=== PATIENT | male | born 1955 | race Caucasian/White ===

== ENCOUNTER → 2019-05-07 | Outpatient (CLI) | payer BC ==
[~2019-05-07] MED LIST: AMLO5 PO; AMOX500 PO; ASPI81CH PO; ATOR40TA PO; CARV25 PO; CLOP75 PO; CYAN500 PO; EFFIENT10 MG PO; ESCI10; FISH OIL 1,3601 EACH PO; FURO40 PO; ISOD40ER PO; ISODIN10 PO; Isosorbide Mono30 MG PO; LOSA25 PO; METF500C PO; NITR.4SL SL; Norco 10-325 T1 EACH; Omeprazole20 M1 PO; PROAIR RESPICL90 MCG; RANO500T PO; TUMS DUAL ACTI1 EACH; UBID100 PO; VITAMIN D31000 UNIT PO; [UNRECOGNIZED DRUG - OTHER] TP
[2019-05-07 12:51] LABS: BASOPHILS ABSOLUTE AUTO 0.04 K/mm3 (0.00-0.23); BASOPHILS PERCENT AUTO 0 % (0-2); EOSINOPHILS ABSOLUTE AUTO 0.14 K/mm3 (0.00-0.68); EOSINOPHILS PERCENT AUTO 2 % (0-6); Hematocrit 42.6 % (37.0-53.0); Hemoglobin 14.7 g/dL (13.5-17.5); IMMATURE GRAN ABSOLUTE AUTO 0.03 K/mm3 (0.00-0.10); IMMATURE GRAN PERCENT AUTO 0 % (0-1); LYMPHOCYTES ABSOLUTE AUTO 2.06 K/mm3 (0.84-5.20); LYMPHOCYTES PERCENT AUTO 23 % (21-46); MONOCYTES ABSOLUTE AUTO 1.01 K/mm3 (0.16-1.47); MONOCYTES PERCENT AUTO 11 % (4-13); Mean Corpuscular HGB 31.7 pg (26.0-34.0); Mean Corpuscular HGB Conc 34.5 g/dL (31.5-36.5); Mean Corpuscular Volume 92 fL (80-100); Mean Platelet Volume 9.5 fL (9.1-12.4); NEUTROPHILS ABSOLUTE AUTO 5.82 K/mm3 (1.96-9.15); NEUTROPHILS PERCENT AUTO 64 % (41-73); Platelet Count 229 K/mm3 (150-400); RDW Coefficient Variation 12.8 % (11.7-14.2); RDW Standard Deviation 42.5 fL (35.1-46.3); Red Blood Cell Count 4.64 M/mm3 (4.30-5.90)
[2019-05-07 13:04] LABS: Alanine Aminotransfer (ALT/SGP 23 U/L (12-78); Albumin, Blood 3.9 g/dL (3.4-5.0); Alk Phos 129 U/L (40-126); Anion Gap 2 mmol/L (6-16); Aspartate Aminotrans (AST/SGOT 19 U/L (12-37); Bilirubin, Total 0.7 mg/dL (0.1-1.0); Blood Urea Nitrogen 16 mg/dL (8-24); Bun/Creatinine Ratio 12.3 (12.0-20.0); CO2, Blood 32 mmol/L (21-32); Calcium, Blood 8.8 mg/dL (8.5-10.1); Chloride, Blood 101 mmol/L (98-108); Globulin, Blood 3.9 g/dL (2.2-4.0); Glomerular Filtration Rate 56 (60-); Glucose, Blood 138 mg/dL (70-99); Potassium, Blood 4.1 mmol/L (3.5-5.5); Sodium, Blood 135 mmol/L (136-145); Total Protein, Blood 7.8 g/dL (6.4-8.2); Troponin I <0.017 ng/mL (0.000-0.040)
== END ==
LOC: LAB EV 12:45 → LAB SHORT 12:45
PROVIDERS: Physician Assistant
DX: R61 Generalized hyperhidrosis (principal)
CPT/HCPCS: 80053; 84484; 85025; 85379

== ENCOUNTER 2021-10-23 08:13 | Observation (INO) | payer BC ==
[~2021-10-23] VITALS: Ht 177.8 cm; Wt 138.2 kg
[~2021-10-23 08:13] MED LIST changes: -Norco 10-325 T1 EACH; +Norco 7.5-3251 EACH PO
[2021-10-23 08:55] LABS: BASOPHILS ABSOLUTE AUTO 0.05 K/mm3 (0.00-0.23); BASOPHILS PERCENT AUTO 1 % (0-2); EOSINOPHILS ABSOLUTE AUTO 0.24 K/mm3 (0.00-0.68); EOSINOPHILS PERCENT AUTO 3 % (0-6); Hematocrit 44.5 % (37.0-53.0); Hemoglobin 15.7 g/dL (13.5-17.5); IMMATURE GRAN ABSOLUTE AUTO 0.03 K/mm3 (0.00-0.10); IMMATURE GRAN PERCENT AUTO 0 % (0-1); LYMPHOCYTES ABSOLUTE AUTO 2.03 K/mm3 (0.84-5.20); LYMPHOCYTES PERCENT AUTO 21 % (21-46); MONOCYTES ABSOLUTE AUTO 0.87 K/mm3 (0.16-1.47); MONOCYTES PERCENT AUTO 9 % (4-13); Mean Corpuscular HGB 31.9 pg (26.0-34.0); Mean Corpuscular HGB Conc 35.3 g/dL (31.5-36.5); Mean Corpuscular Volume 90 fL (80-100); Mean Platelet Volume 9.8 fL (9.1-12.4); NEUTROPHILS ABSOLUTE AUTO 6.42 K/mm3 (1.96-9.15); NEUTROPHILS PERCENT AUTO 67 % (41-73); Platelet Count 259 K/mm3 (150-400); RDW Coefficient Variation 12.6 % (11.7-14.2); RDW Standard Deviation 41.3 fL (35.1-46.3); Red Blood Cell Count 4.92 M/mm3 (4.30-5.90); White Blood Cell Count 9.64 K/mm3 (4.00-11.30)
[2021-10-23 09:18] LABS: International Normalized Ratio 1.07; Prothrombin Time Results 11.2 Sec (9.7-11.5)
[2021-10-23 09:18] LABS: Albumin, Blood 3.9 g/dL (3.4-5.0); Bilirubin, Total 0.7 mg/dL (0.1-1.0); Bun/Creatinine Ratio 18.5 (12.0-20.0); Calcium, Blood 8.9 mg/dL (8.5-10.1); Creatinine, Blood 0.92 mg/dL (0.60-1.20); Globulin, Blood 3.8 g/dL (2.2-4.0); Potassium, Blood 4.3 mmol/L (3.5-5.5); Total Protein, Blood 7.7 g/dL (6.4-8.2)
--- NOTE | 2021-10-23 17:14 | NUR ---
PT ARRIVES TO ICU 16 FROM ER AT 1630. PT IS A/OX4. CP RETURNS AT A 3/10 WHEN SLID FROM GURNEY TO BED WITH SLIDER SHEET. AFTER PT IS SETTLED INTO BED CP GOES BACK DOWN TO 0-1/10. NO SOB OR N/V. HAS NITRO GTT RUNNING AT 25MCG/MIN. HEPARIN GTT AT 15 UNITS/KG/HR. CONFIRMED WITH PT THAT HE IS A FULL CODE AND WHAT THAT MEANS. SPOKE WITH PT ABOUT LOOKING AT OTHER HOSPITALS BESIDES [facility] FOR TRANSFER DUE TO PT NEEDING CABG. PT IS NOT THRILLED ABOUT GOING TO OTHER HOSPITALS DUE TO CONVENIENCE FOR FAMILY AND TRAVEL. EDUCATED PT AND ABOUT THE POSSIBILITY THAT [facility] MAY NOT HAVE AN AVAILABLE BED FOR AWHILE. BOTH PT AND AGREED TO LOOK AT OTHER OPTIONS AND TO AT LEAST GET ON WAITING LISTS OF OTHER HOSPITALS IF NECESSARY. CALLED DR. JAIME TO ASK IF HE WOULD ALSO LIKE TO LOOK INTO OTHER HOSPITALS AND HE AGREES. ALSO INFORMED HIM OF TROPONIN INCREASE AND CP RETURNING WITH ANY EXERTION. BLOOD SPLATTER ANALYST MADHU IS STARTING PHONE CALLS. PT HAS DIRECT INSTRUCTIONS FROM THIS RN TO CALL FOR ASSISTANCE IF NEEDING TO USE BATHROOM OR ANYTHING THAT WILL EXERT HIS HEART. EDUCATED THAT HE IS ON BEDREST NOW AND PT VERBALIZES UNDERSTANDING. CALL LIGHT IN REACH, AT BEDSIDE.
[2021-10-23] MEDS ORDERED: Vitamin D1000 UNI1 PO (17:41)
--- NOTE | 2021-10-23 18:01 | NUR ---
TEMPLATE MAKER ABLE TO GET [facility] WHO IS IN TOUCH WITH DR. JAIME. WORKING TO GET A BED AVAILABLE FOR CABG AND TRANSFER RAHUL. PT RESTING IN BED. NO SIGN OF DISTRESS.
--- NOTE | 2021-10-23 18:29 | NUR ---
REPORT GIVEN TO BEATRIZ RODRÍGUEZ AT [facility]. PT IS GOING TO ROOM 275. PT AND INFORMED OF ROOM # AND PLAN TO TRANSFER VIA AMBULANCE.
--- NOTE | 2021-10-23 19:04 | NUR ---
AT 1840 PT STARTED HAVING 2/10 MID STERNAL CP. GAVE MORPHINE AND INCREASED NITRO TO 30MCG/MIN. PT STATES CP SUBSIDES AFTER MEDS. REPORT GIVEN TO EMT'S. PT LEAVES THE UNIT FOR TRANSFER TO [facility] WITHOUT SIGNS OF DISTRESS. HEPARIN REMAINS RUNNING WELL.
== END 2021-10-23 19:02 | disposition short-term general hospital (02) ==
LOC: ER 08:13 → PCU 08:14 → ICUW 16:38
PROVIDERS: Emergency Medicine; ADMIT Internal Medicine
DX: I25.110 Atherosclerotic heart disease of native coronary artery with unstable angina pectoris (principal); I11.9 Hypertensive heart disease without heart failure; J98.11 Atelectasis; E78.00 Pure hypercholesterolemia, unspecified; I25.2 Old myocardial infarction; I25.10 Atherosclerotic heart disease of native coronary artery without angina pectoris; R73.03 Prediabetes; E78.5 Hyperlipidemia, unspecified; E66.9 Obesity, unspecified; Z95.1 Presence of aortocoronary bypass graft; Z90.49 Acquired absence of other specified parts of digestive tract; Z79.82 Long term (current) use of aspirin; Z79.84 Long term (current) use of oral hypoglycemic drugs; Z87.891 Personal history of nicotine dependence
CPT/HCPCS: 36415; 71045; 71275; 80053; 83880; 84484; 85025; 85520; 85610; 85730; 93005; 93010; A9270; J1644; J2270; J3010; Q9967